=== PATIENT | male | born 1995 | race Caucasian/White ===

== ENCOUNTER 2017-01-21 19:46 | Emergency (ER) | payer OTHER, BC ==
[2017-01-21 19:53] VITALS: BP 133/59
[2017-01-21] MEDS ORDERED: Iopamidol 612 MG/ML 150 ML Bottle IVPUSH ONE (19:55)
[2017-01-21] MEDS ORDERED: Sodium Chloride 0.9% 10 ML Syringe FLUSH PRN (19:55)
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
--- NOTE | 2017-01-21 20:46 | CT ---
Head CT Technique: Multiple axial sections through the brain were obtained. Intravenous contrast was not utilized. Comparison: No previous intracranial imaging is available. Findings: Ventricles along with basal cisterns and sulci over the convexities appear within normal limits for the patient's age. No abnormal parenchymal densities are seen. No evidence of intracranial hemorrhage. No midline shift or mass effect is seen. Bone window settings were reviewed which shows the visualized sinuses do appear clear. No acute calvarial abnormality is seen. Impression: 1. No abnormality is identified on noncontrast head CT exam. Diagnostic code #1
--- NOTE | 2017-01-21 20:49 | CT ---
CT facial bones Technique: Multiple axial sections through the facial bones were obtained. Reconstructed coronal and sagittal images were reviewed. Findings: Right and left globes appear symmetric. Paranasal sinuses are clear. No facial bone fracture is seen. Small external opaque foreign body is seen within the undersurface of the left side of the chin. Impression: 1. Small external opaque foreign body as noted above. 2. No additional abnormality is identified on CT study of the facial bones. Diagnostic code #3
--- NOTE | 2017-01-21 21:01 | CT ---
CT cervical spine Technique: Multiple axial sections were obtained from above C1 inferiorly to the mid T2 level. Reconstructed sagittal and coronal images were reviewed. Findings: Vertebral body heights and disc spaces are maintained. Posterior skull base is intact. Vertebral bodies and posterior arches are intact. No fracture is seen. No bony central or bony neural foraminal stenosis is seen. No abnormal subluxation is seen on the reconstructed sagittal images. Impression: 1. No acute abnormality is seen on CT study of the cervical spine. Diagnostic code #1
--- NOTE | 2017-01-21 21:09 | CT ---
CT chest Technique: Multiple axial sections through the chest were obtained. Intravenous contrast was utilized. Comparison: No previous chest imaging. Findings: Mediastinum and hilar regions show no adenopathy or mass. No pericardial thickening is seen. Opacified great vessels appear within normal limits. No axillary adenopathy is seen. Minimal areas of increased density noted within the right lung base possibly due to minimal areas of pulmonary contusion. Lungs otherwise are clear. No pleural effusions are seen. No pneumothorax is noted. Bone window settings were reviewed which shows no discrete rib fracture. Thoracic spine shows no discrete abnormality. Sternum shows no discrete abnormality. Impression: 1. Minimal areas of increased density within the right lung base possibly due to minimal areas of pulmonary contusion. 2. Other portions of these CT study of the chest are unremarkable. Diagnostic code #2 CT abdomen and pelvis Technique: Multiple axial sections were obtained from above the dome of the diaphragm inferiorly through the pubic symphysis. Intravenous contrast was utilized. No oral contrast has been given. Comparison: No previous study. Findings: Minimal areas of diminished density are noted within the mid right lobe of the liver. Minimal areas of liver contusion are possible. Several low density areas are seen within the spleen felt compatible with minimal areas of splenic laceration. Minimal low density is seen adjacent to the spleen which is felt compatible with minimal perisplenic hematoma. This finding is felt to represent grade 1 splenic injury. Kidneys are unremarkable. Adrenal glands are unremarkable. Pancreas appears within normal limits. Aorta shows no aneurysmal dilatation. No pelvic abnormality is seen. No mesenteric abnormalities are seen. No free fluid is seen within the abdomen or pelvis. Bone window settings shows vertebral body heights to be maintained within the lumbar spine. Small fracture identified within the tip of the transverse process of L3 on the right side. No additional lumbar abnormality is seen. No fracture appreciated within the pelvis. Impression: 1. Minimal areas of diminished density within the right lobe of the liver which are felt compatible with slight liver contusions. This is a grade 1 injury. 2. Several small low-density lesions within the spleen compatible with slight splenic laceration. Minimal soft tissue density around the spleen compatible with minimal splenic hematoma also felt compatible with grade 1 injury. 3. Small fracture within the tip of the right transverse process of L3 within the lumbar spine. Diagnostic code #3
[2017-01-21] MEDS ORDERED: HYDROmorphone 0.5 MG/0.5 ML Syringe IVPUSH STA (21:38)
[2017-01-21] MEDS ORDERED: Lidocaine 1% 50 ML MDV INJECT STA (21:41)
[2017-01-21] MEDS ORDERED: Sodium Chloride 0.9% 1,000 ML IV SCH (21:45)
[2017-01-21] MEDS ORDERED: Ondansetron 4 MG/2 ML SDV ONE (22:52)
[2017-01-21] MEDS ORDERED: Ondansetron 4 MG/2 ML SDV IVPUSH ONE (22:56)
[2017-01-21] MEDS ORDERED: HYDROmorphone 0.5 MG/0.5 ML Syringe ONE (23:38)
[2017-01-21] MEDS ORDERED: HYDROmorphone 0.5 MG/0.5 ML Syringe IVPUSH ONE (23:42)
--- NOTE | 2017-01-22 12:57 | CT ---
CT lumbar spine Technique: Multiple axial sections were obtained from the top of T11 inferiorly through the L5-S1 disc. Reconstructed sagittal and coronal images were reviewed. Findings: Fracture seen off the tip of the right transverse process of L3. No additional fractures seen within the lumbar spine. Slight posterior disc bulge noted at L5-S1. No traumatic disc herniation is seen. No bony central or bony neural foraminal stenosis is seen. Impression: 1. Small fracture off the tip of the right transverse process of L3. 2. Mild posterior disc bulge at L5-S1. 3. No additional abnormality is identified. Diagnostic code #3 I agree with preliminary report issued by [facility] ([facility] report finalized on 01/21/17, 11:29 PM Central Time)
== END 2017-01-21 23:54 ==
LOC: JD.ED 19:46
DX: S32.008A Other fracture of unspecified lumbar vertebra, initial encounter for closed fracture (principal); S36.039A Unspecified laceration of spleen, initial encounter; S01.21XA Laceration without foreign body of nose, initial encounter; S36.112A Contusion of liver, initial encounter; S27.321A Contusion of lung, unilateral, initial encounter; V49.50XA Passenger injured in collision with unspecified motor vehicles in traffic accident, initial encounter; Y92.410 Unspecified street and highway as the place of occurrence of the external cause
CPT/HCPCS: 12011; 36415; 70450; 70486; 71260; 72125; 72131; 74177; 80053; 82150; 85025; 85610; 85730; 96361; 96374; 96375; 96376; 99285; G0480; J1170; J2405; J7040; J7050; Q9967